=== PATIENT | female | born 1975 | race Caucasian/White ===

== ENCOUNTER 2019-06-23 08:55 | Inpatient (IN) | payer BC, OTHER ==
[2019-06-13 11:08] VITALS: BMI 26.8
--- NOTE | 2019-06-22 17:13 | HP ---
Admitting History and Physical - Admission Chief Complaint: Right hip osteoarthritis x years History of Present Illness: 44 year old female presents today in regard to her right hip. Longstanding history of right hip osteoarthritis. Patient complains of pain, limited ROM, difficulty ambulating and difficulty completing ADLs. Patient has failed conservative treatment measures including PO medications, activity modifications , injections and exercise programs. At this point, patient would like to proceed with surgical intervention - right total hip arthroplasty, MAKOplasty. - Past Medical History CLERGY MEMBER: Yes: Migraine ...LMP: 01/24/19 Musculoskeletal: Yes: Osteoarthritis - Past Surgical History Additional Past Surgical History: See written history & physical. - Smoking History Smoking history: Never smoked - Alcohol/Substance Use Hx Alcohol Use: No Home Medications - Allergies Allergies/Adverse Reactions: Allergies Allergy/AdvReac Type Severity Reaction Status Date / Time amoxicillin Allergy Difficulty Verified 06/13/19 10:58 Breathing - Home Medications Home Medications: Ambulatory Orders Almotriptan Malate 12.5 mg PO BID PRN 06/13/19 Aspirin/Acetaminophen/Caffeine [Excedrin Migraine Caplet] 1 each PO ASDIR PRN Diclofenac Sodium 50 mg PO BID PRN 06/13/19 Erenumab-Aooe [Aimovig Autoinjector] 70 mg SQ MONTHLY 06/13/19 Lysine [l-Lysine] 500 mg PO DAILY 06/13/19 Multivitamin [Multiple Vitamins] 1 each PO DAILY 06/13/19 Oregano Oil [Oil of Oregano] 1,500 mg PO DAILY 06/13/19 Vitamin C/Biotin [Hair, Skin and Nails Gummies] 1 each PO DAILY 06/13/19 Review of Systems - Review of Systems Musculoskeletal: reports: Decreased ROM (right hip), Joint Pain (right hip) Physical Examination Constitutional: Yes: Well Nourished, No Distress Eyes: Yes: Conjunctiva Clear HENT: Yes: Atraumatic Neck: Yes: Supple, Trachea Midline Cardiovascular: Yes: Regular Rate and Rhythm Respiratory: Yes: Regular Gastrointestinal: Yes: Soft Musculoskeletal: Yes: Joint Stiffness (right hip) Assessment/Plan 44 year old female presents today in regard to her right hip. Longstanding history of right hip osteoarthritis. Patient complains of pain, limited ROM, difficulty ambulating and difficulty completing ADLs. Patient has failed conservative treatment measures including PO medications, activity modifications , injections and exercise programs. At this point, patient would like to proceed with surgical intervention - right total hip arthroplasty, MAKOplasty. Pros, cons, risks benefits and alternatives of a right total hip arthroplasty, MAKOplasty was discussed with the patient at length. Patient confirms their understanding and consents to proceed with a right total hip arthroplasty, MAKOplasty.
[~2019-06-23 08:55] MED LIST: CEFAZOLIN 2 GM in DEXTROSE 5%-WATER - 50 ML IVPB ONE; CELECOXIB 200 MG CAPSULE PO ONE; GABAPENTIN 300 MG CAPSULE (FP) PO ONE; PANTOPRAZOLE 40 MG TABLET (FP) PO ONE; ROPIVICAINE 0.2%/MORPH PF/KETOROLAC - 51ML DISP.SYRINGE IA ONE; TRANEXAMIC ACID 1000 MG/10 ML VIAL IVPUSH ONE; VANCOMYCIN 1,000 MG VIAL (RESTRICTED TO ID ONLY) IVPB ONE; oxyCODONE HCL 10 MG SUSTAINED ACTING TABLET PO ONE
[2019-06-23] MEDS ORDERED: PANTOPRAZOLE 40 MG TABLET (FP) ONE (10:08)
[2019-06-23] MEDS ORDERED: GABAPENTIN 300 MG CAPSULE (FP) ONE (10:09)
[2019-06-23] MEDS ORDERED: oxyCODONE HCL 10 MG SUSTAINED ACTING TABLET ONE (10:09)
[2019-06-23] MEDS ORDERED: CELECOXIB 200 MG CAPSULE ONE (10:09)
[2019-06-23] MEDS ORDERED: DEXAMETHASONE SOD PHOSPHATE/PF 10 MG/ML SDV ONE (10:36)
[2019-06-23] MEDS ORDERED: BUPIVACAINE HCL/PF 0.5% (5 MG/ML) 30 ML VIAL IJ ONE (10:36)
[2019-06-23] MEDS ORDERED: MIDAZOLAM HCL 2 MG/2 ML SINGLE DOSE VIAL ONE (10:36)
[2019-06-23] MEDS ORDERED: BUPIVACAINE HCL/PF 0.5% (5MG/ML) 10 ML VIAL ONE (11:44)
[2019-06-23] MEDS ORDERED: ceFAZolin SODIUM 1 GM VIAL ONE ×2 (11:45→12:26)
[2019-06-23] MEDS ORDERED: VANCOMYCIN 1,000 MG VIAL (RESTRICTED TO ID ONLY) ONE (11:45)
[2019-06-23] MEDS ORDERED: TRANEXAMIC ACID 1000 MG/10 ML VIAL ONE ×2 (11:45→12:26)
[2019-06-23] MEDS ORDERED: DEXMEDETOMIDINE HCL 200 MCG/2 ML IVPB ONE (12:09)
[2019-06-23] MEDS ORDERED: SUCCINYLCHOLINE CHLORIDE 200 MG/10 ML SYRINGE ONE (12:13)
[2019-06-23] MEDS ORDERED: PROPOFOL 20 ML ONE (12:13)
[2019-06-23] MEDS ORDERED: ceFAZolin SODIUM 1 GM VIAL IVPB ONE (12:21)
[2019-06-23] MEDS ORDERED: DEXAMETHASONE SOD PHOSPHATE 4 MG/1 ML VIAL ONE (12:26)
[2019-06-23] MEDS ORDERED: ONDANSETRON 4 MG/2 ML VIAL ONE (12:26)
[2019-06-23] MEDS ORDERED: ROPIVICAINE 0.2%/MORPH PF/KETOROLAC - 51ML DISP.SYRINGE IA ONE ×2 (13:25→15:07)
[2019-06-23] MEDS ORDERED: ONDANSETRON 4 MG/2 ML VIAL IVPUSH PRN ×2 (14:18→15:38)
[2019-06-23] MEDS ORDERED: oxyCODONE HCL 5 MG TABLET PO PRN ×2 (14:20)
[2019-06-23] MEDS ORDERED: VANCOMYCIN 1,000 MG VIAL (RESTRICTED TO ID ONLY) IVPB ONE (14:25)
[2019-06-23] MEDS ORDERED: TRANEXAMIC ACID 1000 MG/10 ML VIAL IVPUSH ONE ×2 (14:29→14:49)
[2019-06-23] MEDS ORDERED: LACTATED RINGERS SOLUTION 1,000 ML IV SCH ×2 (14:30→15:45)
[2019-06-23] MEDS ORDERED: KETOROLAC TROMETHAMINE 30 MG/1 ML VIAL ONE (14:33)
[2019-06-23] MEDS ORDERED: traMADol HCL 50 MG TABLET ONE (14:33)
[2019-06-23] MEDS ORDERED: ACETAMINOPHEN INJECTION 100 ML IVPB ONE (14:34)
--- NOTE | 2019-06-23 15:34 | OP ---
Operative Note - Note: Operative Date: 06/23/19 Pre-Operative Diagnosis: Right hip OA Operation: Right YURIY RENATA Post-Operative Diagnosis: Same as Pre-op Surgeon: Gil Mckenna Mortgage Branch Manager: Taniya Dean Anesthesia: Spinal Estimated Blood Loss (mls): 200
[2019-06-23] MEDS ORDERED: [UNRECOGNIZED DRUG - OTHER] PO PRN (15:36)
[2019-06-23] MEDS ORDERED: MAGNESIUM HYDROX 2400MG/30ML ORAL SUSPENSION 30 ML CUP PO PRN (15:38)
[2019-06-23] MEDS ORDERED: MAG HYDROX/AL HYDROX/SIMETH 30 ML UNIT-DOSE CUP PO PRN (15:38)
[2019-06-23] MEDS ORDERED: ACETAMINOPHEN 1000 MG/100 ML VIAL (NON FORMULARY) IVPB ONE (15:41)
[2019-06-23] MEDS: KETOROLAC TROMETHAMINE 30 MG/1 ML VIAL IVPUSH SCH ×2 (15:50→22:00)
--- NOTE | 2019-06-23 15:59 | SPEC ---
DATE OF OPERATION: 06/23/2019 PREOPERATIVE DIAGNOSIS: Right hip osteoarthritis. POSTOPERATIVE DIAGNOSIS: Right hip osteoarthritis. PROCEDURE: Right total hip replacement with Makoplasty robotic navigation. ATTENDING SURGEON: Dada Fontaine MD CHIEF ENVIRONMENTAL COMMITMENT OFFICER: CECILY Becker ANESTHESIA: Spinal plus sedation. ESTIMATED BLOOD LOSS: 200 mL. COMPLICATIONS: None. DISPOSITION: The patient was transferred to the PACU in stable condition. IMPLANT USED: Rory Accolade II size 4 femoral component, a Rory Trident II 46-mm acetabular component with 25-mm acetabular screw, MDM bipolar head ball and liner with inner +3 mm offset head ball. INDICATIONS: This is a 44-year-old female who presented to the office complaining of severe right hip pain. She was seen and evaluated by Dr. Fontaine, diagnosed with severe right hip osteoarthritis. The patient was initially treated conservatively with nonoperative treatments but continued to have severe pain and ambulatory dysfunction. She was therefore indicated for right total hip replacement. The risks, benefits, and alternatives of the procedure were explained to the patient in great detail, and she elected to proceed with the surgery. On the day of surgery, the patient was taken to the operating room and placed on the OR table. Spinal anesthesia was administered by the anesthesiologist. The patient was then positioned in the lateral decubitus position on the table and all bony prominences were padded. An axillary roll was placed. The operative hip was then prepped and draped in the usual sterile fashion and intravenous antibiotics were given for infection prophylaxis. A surgical time-out was then performed with the team, and the patients identity, procedure, side, availability of implants, and the administration of antibiotics were confirmed. An approximately 15-cm longitudinal incision was made through the skin centered on the greater trochanter of the hip. This dissection was carried down through the subcutaneous tissues to the deep fascia. This fascia was then incised and a Cobra was placed around the inferior femoral neck. Electrocautery was used to reflect the anterior 40% of the gluteus medius and minimus starting at the musculotendinous junction and leaving a cuff for closure. This was reflected to reveal the capsule of the hip joint. An anterior capsulectomy was performed and the femoral head and neck were visualized. Grade 4 changes were noted diffusely throughout the joint. At this point, three small stab incisions were made superior to the main incision along the iliac crest. Three self-drilling Steinmann pins were then placed and the MapSense pelvic array was attached. Reference points on the limb were then entered into the robotic device and the limb length deficiency, offset, and femoral neck resection level were then calculated by the software. The hip was then dislocated with traction and external rotation. An oscillating saw was used to make the femoral neck cut at the level previously templated, and the femoral head was removed. Attention was then turned to the acetabulum. Retractors were then placed around the acetabulum and the labrum was removed. An acetabular checkpoint pin and the MapSense software were used to register the contours of the acetabulum. The acetabulum was then reamed in a single stage to the preoperatively templated size using the Ismael robotic arm. The appropriately sized cup was then impacted and had solid fixation as well as the preset inclination and version of 40 and 20 degrees, respectively. A polyethylene liner was then placed in the cup. Attention was then turned back to the femur, which was externally rotated for improved visualization. A femoral neck elevator was used to present the femoral neck cut, a box osteotome was used to enter the femoral canal, and a canal finder was used to go down the femoral shaft. The Ismael broaches were used sequentially until the optimal scratch fit was achieved. This correlated with the preoperatively templated size. From here, several different offset head and neck configurations were tested until excellent stability and length were obtained. These measurements were quantified using the MapSense software. All trial components were then removed, the femur was copiously irrigated, and the final components were placed. Leg length and stability were checked again and found to be excellent. Irrigation was performed again. Wound closure was started by repairing the abductor muscles with a no. 2 FiberWire stitch in a Krackow configuration passed through bone tunnels in the greater trochanter and tied over a bony bridge. This repair was then reinforced with a 0 V-Loc 180 barbed suture. Next, no. 1 Polysorb and 0 V-Loc 180 were used to close the fascia. The deep subcutaneous tissue was closed with no. 1 Polysorb sutures, and 2-0 Polysorb was used for the superficial subcutaneous tissue. The skin was closed using both 3-0 V-Loc 90 suture in a running subcuticular fashion and SwiftSet skin adhesive. The Ismael array and pins were removed from the iliac crest and the stab incision sites were irrigated and closed with 4-0 Polysorb sutures and SwiftSet skin adhesive. Once this was completed, a sterile dressing was applied. The patient was then awakened and taken to the PACU in stable condition. DADA FONTAINE M.D. [id number]
[2019-06-23] MEDS: traMADol HCL 50 MG TABLET PO SCH ×2 (16:05→21:59)
[2019-06-23] MEDS: CEFAZOLIN 2 GM/D5W 2 GM/50 ML ML IVPB SCH (20:36)
[2019-06-23] MEDS: ACETAMINOPHEN 325 MG TABLET (FP) PO SCH (20:36)
[2019-06-23] MEDS: SENNOSIDES/DOCUSATE COMBO (SENNA PLUS) TABLET (UD) PO SCH (21:59)
[2019-06-23] MEDS: GABAPENTIN 300 MG CAPSULE (FP) PO SCH (21:59)
[2019-06-23] MEDS: ASCORBIC ACID 500 MG TABLET (FP) PO SCH (22:00)
[2019-06-23] MEDS: CELECOXIB 200 MG CAPSULE PO SCH (22:00)
[2019-06-23] MEDS: oxyCODONE HCL 10 MG SUSTAINED ACTING TABLET PO SCH (23:05)
[2019-06-24] MEDS ORDERED: DEXAMETHASONE SOD PHOSPHATE 10 MG/1 ML VIAL IVPB ONE
[2019-06-24] MEDS: ACETAMINOPHEN 325 MG TABLET (FP) PO SCH ×4 (02:39→20:40)
[2019-06-24] MEDS: traMADol HCL 50 MG TABLET PO SCH ×4 (03:50→22:00)
[2019-06-24] MEDS: KETOROLAC TROMETHAMINE 30 MG/1 ML VIAL IVPUSH SCH ×2 (03:50→10:01)
[2019-06-24] MEDS: CEFAZOLIN 2 GM/D5W 2 GM/50 ML ML IVPB SCH (04:30)
[2019-06-24] MEDS: ASPIRIN 325 MG TABLET PO SCH (07:41)
[2019-06-24 07:46] LABS: HEMATOCRIT 35.4 % (32.4-45.2); HEMOGLOBIN 11.8 GM/dl (10.7-15.3); MCH 30.1 pg (25.7-33.7); MCHC 33.4 g/dl (32.0-36.0); MEAN CELL VOLUME 90.1 fl (80-96); MEAN PLT VOLUME 10.2 fl (7.5-11.1); PLATELET COUNT 292 K/MM3 (134-434); RBC 3.93 M/mm3 (3.60-5.2); RDW 13.3 % (11.6-15.6); WHITE BLOOD COUNT 11.5 K/mm3 (4.0-10.8)
[2019-06-24 07:48] LABS: CALCIUM 8.6 mg/dl (8.5-10); CREATININE 0.7 mg/dl (0.55-1.3); POTASSIUM 4.3 mmol/L (3.5-5.1)
[2019-06-24] MEDS: PANTOPRAZOLE 40 MG TABLET (FP) PO SCH (10:00)
[2019-06-24] MEDS: GABAPENTIN 300 MG CAPSULE (FP) PO SCH ×2 (10:00→22:17)
[2019-06-24] MEDS: MULTIVITAMINS (DAILY MVI) TABLET (FP) PO SCH (10:00)
[2019-06-24] MEDS: ASCORBIC ACID 500 MG TABLET (FP) PO SCH ×2 (10:00→22:17)
[2019-06-24] MEDS: CELECOXIB 200 MG CAPSULE PO SCH ×2 (10:00→22:19)
[2019-06-24] MEDS: SENNOSIDES/DOCUSATE COMBO (SENNA PLUS) TABLET (UD) PO SCH ×2 (10:00→22:18)
[2019-06-24] MEDS: oxyCODONE HCL 10 MG SUSTAINED ACTING TABLET PO SCH ×2 (10:01→22:17)
--- NOTE | 2019-06-24 11:33 | PN ---
Progress Note (short form) - Note Progress Note: ANESTHESIA POSTOP 44 YO FEMALE POD#1 S/P R RENATA, SPINAL, PNB Patient sitting in chair. Pain adequately controlled. Tolerating PO. VSS, Afebrile Continue current care. Encouraged active participation in PT. No anesthetic complications.
--- NOTE | 2019-06-24 17:22 | PN ---
Progress Note (short form) - Note Progress Note: Pt seen and examined. Doing well. AVSS Selected Entries 06/24/19 14:03 Temperature 98.0 F Pulse Rate 75 Respiratory 16 Rate Blood Pressure 111/61 O2 Sat by Pulse 96 Oximetry (%) Laboratory Tests 06/24/19 06/24/19 06:53 06:53 WBC 11.5 H Hgb 11.8 Hct 35.4 Plt Count 292 Sodium 135 L Potassium 4.3 Chloride 103 Carbon Dioxide 26 Anion Gap 6 L BUN 15.0 Creatinine 0.7 Est GFR (CKD-EPI)AfAm 121.27 Est GFR (CKD-EPI)NonAf 104.64 Random Glucose 173 H Calcium 8.6 Gen: NAD RLE: c/d/i, NVID A/P s/p R [facility] Doing well D/C home in AM
--- NOTE | 2019-06-24 22:15 | DS ---
Physical Examination Vital Signs: Vital Signs Temperature 97.8 F 06/24/19 17:00 Pulse Rate 76 06/24/19 17:00 Respiratory Rate 18 06/24/19 17:00 Blood Pressure 110/57 L 06/24/19 17:00 O2 Sat by Pulse Oximetry (%) 99 06/24/19 17:00 Labs: CBC, BMP 06/24/19 06:53 06/24/19 06:53 Discharge Summary Reason For Visit: RIGHT TOTAL HIP REPLACEMENT YURIY (SCIP) Current Active Problems Osteoarthritis of right hip (Acute) Procedures: Principal: right YURIY RENATA Hospital Course: Admitted for elective surgery. Procedure performed without complications. Pt received postoperative antibiotic prophylaxis and DVT ppx. Ambulated with physical therapy. Stable for discharge home with outpatient followup. Condition: Stable - Instructions Diet, Activity, Other Instructions: Dr Mckenna - Hip Replacement Instructions Keep the Aquacel dressing on until removed by Dr. Mckenna in 10-14 days - it is antibacterial and waterproof and you can shower with it on. Call the office for a follow-up appointment with Dr. Mckenna in 10-14 days. Take one Aspirin 325mg daily for 6 weeks to prevent blood clots in your legs. Take one Pantoprazole 40mg daily for 6 weeks to protect against heartburn and ulcers. Take Cephalexin (antibiotic) 3x/day for 10 days to help prevent skin infection. Take Celebrex 200mg twice daily for 30 days to reduce swelling and inflammation. Take a multivitamin, stool softener and extra Vitamin C supplement daily. For pain: *Mild pain (1-3/10): Take 1 Tramadol tablet every 4 hours as needed. Moderate pain (4-6/10): Take 1 Tramadol tablet and 1 Percocet tablet every 4 hours as needed. Severe pain (7-10/10): Take 1 Tramadol tablet and 2 Percocet tablets every 4 hours as needed. Activity: You can put as much weight on the operative leg as you want. For the first 6 weeks, all you need to do is walk around the house, go up/down stairs, and sit down/get up. After 6 weeks when everything is healed (and bone has grown into the implant) you will be sent for more intensive outpatient physical therapy. Always use a walker or cane for balance and to prevent falls. Expect to see swelling / bruising from the operative site all the way down to your toes. Wear the Compression stocking on the operative side during the day to minimize how much swelling there is in your foot/ankle. Don't wear the stocking at night. You don't have to wear the stocking on the other side. Disposition: VNS/HOME HEALTH CARE - Home Medications Comprehensive Discharge Medication List: Ambulatory Orders Almotriptan Malate 12.5 mg PO BID PRN 06/13/19 Aspirin/Acetaminophen/Caffeine [Excedrin Migraine Caplet] 1 each PO ASDIR PRN Erenumab-Aooe [Aimovig Autoinjector] 70 mg SQ MONTHLY 06/13/19 Lysine [l-Lysine] 500 mg PO DAILY 06/13/19 Multivitamin [Multiple Vitamins] 1 each PO DAILY 06/13/19 Oregano Oil [Oil of Oregano] 1,500 mg PO DAILY 06/13/19 Vitamin C/Biotin [Hair, Skin and Nails Gummies] 1 each PO DAILY 06/13/19 Ascorbic Acid [Vitamin C -] 500 mg PO BID tablet 06/24/19 Aspirin [ASA -] 325 mg PO DAILY@0800 tablet 06/24/19 Celecoxib [CeleBREX -] 200 mg PO BID #60 capsule 06/24/19 Cephalexin Monohydrate [Keflex -] 500 mg PO TID #30 capsule 06/24/19 Multivitamins [Multivit ([facility] Formulary)] 1 tab PO DAILY tab 06/24/19 Oxycodone HCl/Acetaminophen [Percocet 5-325 mg Tablet] 1 - 2 tab PO Q4H PRN #60 tablet MDD 10 06/24/19 Pantoprazole Sodium [Protonix -] 40 mg PO DAILY #40 tablet.ec 06/24/19 Sennosides/Docusate Sodium [Pericolace -] 2 tablet PO BID tablet 06/24/19 traMADol HCL [Ultram -] 50 mg PO Q4H PRN #42 tablet MDD 6 06/24/19
[2019-06-25] MEDS: ACETAMINOPHEN 325 MG TABLET (FP) PO SCH ×2 (03:00→08:27)
[2019-06-25] MEDS: traMADol HCL 50 MG TABLET PO SCH ×2 (04:30→08:45)
[2019-06-25] MEDS ORDERED: ACETAMINOPHEN 325 MG TABLET (FP) ONE (05:41)
[2019-06-25 06:47] VITALS: BP 100/55; PULSE 84; TEMP 97.7
[2019-06-25] MEDS: ASPIRIN 325 MG TABLET PO SCH (08:03)
[2019-06-25 08:42] LABS: HEMATOCRIT 33.7 % (32.4-45.2); HEMOGLOBIN 11.3 GM/dl (10.7-15.3); MCH 30.5 pg (25.7-33.7); MCHC 33.6 g/dl (32.0-36.0); MEAN CELL VOLUME 90.7 fl (80-96); MEAN PLT VOLUME 9.8 fl (7.5-11.1); PLATELET COUNT 268 K/MM3 (134-434); RBC 3.72 M/mm3 (3.60-5.2); RDW 13.4 % (11.6-15.6); WHITE BLOOD COUNT 11.2 K/mm3 (4.0-10.8)
[2019-06-25] MEDS: GABAPENTIN 300 MG CAPSULE (FP) PO SCH (10:31)
[2019-06-25] MEDS: CELECOXIB 200 MG CAPSULE PO SCH (10:31)
[2019-06-25] MEDS: MULTIVITAMINS (DAILY MVI) TABLET (FP) PO SCH (10:31)
[2019-06-25] MEDS: oxyCODONE HCL 10 MG SUSTAINED ACTING TABLET PO SCH (10:31)
[2019-06-25] MEDS: SENNOSIDES/DOCUSATE COMBO (SENNA PLUS) TABLET (UD) PO SCH (10:31)
[2019-06-25] MEDS: PANTOPRAZOLE 40 MG TABLET (FP) PO SCH (10:31)
[2019-06-25] MEDS: ASCORBIC ACID 500 MG TABLET (FP) PO SCH (10:31)
--- NOTE | 2019-07-11 10:16 | PATH ---
Surgical Pathology Report Patient Name: NANNETTE MATHIS Med. Rec. #: [id number] /Age/Gender: 1975 (Age: 44) / F Account: [id number] Location: [facility] MED-SURG Taken: 06/23/2019 Received: 06/23/2019 Reported: 07/11/2019 Physicians: Gil Mckenna M.D. Specimen(s) Received RIGHT FEMORAL HEAD Clinical History Right hip osteoarthritis Final Diagnosis FEMORAL HEAD, RIGHT, TOTAL HIP REPLACEMENT: DEGENERATIVE JOINT DISEASE. Electronically Signed Taylor Thayer M.D. Gross Description Received in formalin, labeled "right femoral head," is a 4.5 x 4.5 x 2 cm. femoral head. The margin of resection is smooth to. The articular surface shows areas of eburnation and granularity. The underlying trabecular bone is yellow and hard. Market Maker sections are submitted in one cassette, following decalcification. AE/06/28/2019 ebram/06/28/2019
== END 2019-06-25 11:15 | disposition home health service (06) | DRG 470 ==
LOC: FM/S 08:55
PROVIDERS: ADMIT Student in an Organized Health Care Education/Training Program; ATTEND Student in an Organized Health Care Education/Training Program
PROC: 8E0W0CZ Robotic Assisted Procedure of Trunk Region, Open Approach (ICD-10-PCS; 2019-06-23)
PROC: 0SR90JA Replacement of Right Hip Joint with Synthetic Substitute, Uncemented, Open Approach (ICD-10-PCS; principal; 2019-06-23 11:00)
DX: M16.11 Unilateral primary osteoarthritis, right hip (principal)
CPT/HCPCS: 36415; 73502-TC-RT-FY; 80048; 84703; 85027; 88305-TC; 88311-TC; 94760; 97116-GP; 97163-GP; J0131; J1100